=== PATIENT | male | born 1945 | race Caucasian/White ===

== ENCOUNTER 2020-03-12 04:48 | Observation (INO) | payer MEDICARE ==
--- NOTE | 2020-03-12 02:41 | EDM.PDOC ---
ED HPI GENERAL MEDICAL PROBLEM - General Chief Complaint: Cardiovascular Problem Stated Complaint: Chest pressure, vomiting and diarrhea Time Seen by Provider: 03/12/20 02:20 Source of Information: Reports: EMS History Limitations: Reports: No Limitations - History of Present Illness INITIAL COMMENTS - FREE TEXT/NARRATIVE: Pt states he was well all day. Went to bed around 2300hrs woke up midnight with severe (wretching vomiting and diarrhea back back 3 x within 30 minutes with resultant encopresis) Vomiting was intense and may be reason for his chest pain/pressure without dyspnea and diaphoresis. Does have h/o CAD with sting placement x2 2005 and CABG in 2006. Other than HTN and cardiac, with possible untreated A-fib mentioned one time. does cardiac rehab still 3 x week. Pt was [place] tonight when sx started and called EMS but did not bring any of his medications with him and does not know the names of his medications. (will try to track down via internet look up) Onset: Sudden Onset Date: 03/12/20 Onset Time: 23:50 Location: Reports: Chest, Abdomen Quality: Reports: Pressure Severity: Moderate Improves with: Reports: Rest Worsens with: Reports: Other (vomiting) Associated Symptoms: Reports: Chest Pain, Nausea/Vomiting - Related Data Allergies Allergy/AdvReac Type Severity Reaction Status Date / Time No Known Allergies Allergy Verified 03/12/20 02:44 Home Meds: Home Meds Citalopram [Citalopram HBr] 20 mg PO DAILY 03/12/20 [History] Ezetimibe 10 mg PO DAILY 03/12/20 [History] Losartan Potassium 100 mg PO DAILY 03/12/20 [History] Simvastatin 40 mg PO DAILY 03/12/20 [History] Tamsulosin HCl 0.4 mg PO DAILY 03/12/20 [History] amLODIPine Besylate [Norvasc] 10 mg PO DAILY 03/12/20 [History] hydroCHLOROthiazide [Hydrochlorothiazide] 25 mg PO DAILY 03/12/20 [History] ED ROS GENERAL - Review of Systems Review Of Systems: See Below Constitutional: Denies: Fever HEENT: Reports: No Symptoms Respiratory: Reports: No Symptoms Cardiovascular: Reports: Chest Pain GI/Abdominal: Reports: Diarrhea, Nausea, Vomiting : Reports: No Symptoms Musculoskeletal: Reports: No Symptoms Skin: Reports: No Symptoms. Denies: Diaphoresis, Change in Color Neurological: Reports: No Symptoms Psychiatric: Reports: No Symptoms ED EXAM, GENERAL - Physical Exam Exam: See Below Exam Limited By: No Limitations General Appearance: Alert, WD/WN, Anxious, Mild Distress Ears: Normal External Exam Nose: Normal Inspection Throat/Mouth: Normal Inspection, Normal Lips, Normal Teeth, Normal Oropharynx Head: Atraumatic Neck: Normal Inspection, Supple, Non-Tender Respiratory/Chest: No Respiratory Distress, Lungs Clear, Normal Breath Sounds Cardiovascular: Extra Beats, Irregularly Irregular GI/Abdominal: Normal Bowel Sounds, Soft, Non-Tender Back Exam: Normal Inspection Extremities: Normal Inspection, Normal Range of Motion, Non-Tender Neurological: Alert, Oriented, CN II-XII Intact, Normal Cognition, Normal Gait Psychiatric: Normal Affect, Normal Mood Skin Exam: Warm, Dry, Intact, Normal Color EKG INTERPRETATION EKG Date: 03/12/20 Time: 03:31 Rhythm: A-Fib P-Wave: Absent QRS: Normal QT: Prolonged Comparison: NA - No Prior EKG Course - Vital Signs Last Recorded V/S: Last Vital Signs Temp 98.8 F 03/12/20 03:36 Pulse 74 03/12/20 03:35 Resp 18 03/12/20 03:35 BP 164/85 H 03/12/20 03:35 Pulse Ox 97 03/12/20 03:35 - Orders/Labs/Meds Orders: Active Orders 24 hr Category Date Time Status Cardiac Monitoring [RC] .As Directed Care 03/12/20 02:48 Active EKG Documentation Completion [RC] ASDIRECTED Care 03/12/20 02:58 Active Chest 1V Frontal [CR] Stat Exams 03/12/20 02:58 Taken Sodium Chloride 0.9% [Normal Saline] 1,000 ml Med 03/12/20 02:45 Active IV ASDIRECTED ED Antiemetic Medication Reflex [OM.PC] Stat Oth 03/12/20 02:58 Ordered Medication Orders Sodium Chloride (Normal Saline) 1,000 mls @ 125 mls/hr IV ASDIRECTED [facility] Last Admin: 03/12/20 03:09 Dose: 125 mls/hr Documented by: CORTES Labs: Laboratory Tests 03/12/20 03/12/20 03/12/20 Range/Units 02:50 02:50 02:50 WBC 14.2 H (4.0-11.0) K/uL RBC 4.79 (4.50-6.50) M/uL Hgb 15.0 (13.0-18.0) g/dL Hct 43.0 (40.0-54.0) % MCV 90 (76-96) fL MCH 31.3 (27.0-32.0) pg MCHC 34.9 (31.0-35.0) g/dL RDW 13.1 (11.0-16.0) % Plt Count 235 (150-400) K/uL MPV 11.2 H (6.0-10.0) fL Neut % (Auto) 89.5 H (45.0-70.0) % Lymph % (Auto) 4.3 L (20.0-40.0) % [place] % (Auto) 5.3 (3.0-10.0) % Eos % (Auto) 0.8 L (1.0-5.0) % Baso % (Auto) 0.1 (0.0-0.5) % Neut # (Auto) 12.67 H (2.00-7.50) K/uL Lymph # (Auto) 0.61 L (1.50-4.00) K/uL [place] # (Auto) 0.75 (0.20-0.80) K/uL Eos # (Auto) 0.12 (0.04-0.40) K/uL Baso # (Auto) 0.02 (0.02-0.10) K/uL PT (9.0-11.5) sec INR (1.0-3.5) APTT (24.4-33.2) SECONDS Sodium 142 (136-145) mmol/L Potassium 4.1 (3.5-5.1) mmol/L Chloride 104 (98-107) mmol/L Carbon Dioxide 31.1 (21.0-32.0) mmol/L Anion Gap 11.0 (5.0-15.0) mmol/L BUN 19 (8-26) mg/dL Creatinine 1.17 (0.70-1.30) mg/dL Est Cr Clr Drug Dosing 58.06 mL/min Estimated GFR (MDRD) > 60 (>60) MLS/MIN BUN/Creatinine Ratio 16.2 (6-25) Glucose 140 H (74-100) mg/dL Calcium 9.1 (8.5-10.1) mg/dL Total Bilirubin 0.7 (0.0-1.0) mg/dL AST 36 (15-37) U/L ALT 49 (12-78) U/L Alkaline Phosphatase 100 (46-116) U/L Troponin I 0.041 (0.000-0.060) ng/mL Total Protein 7.4 (6.4-8.2) g/dL Albumin 3.9 (3.4-5.0) g/dL Globulin 3.5 (2.2-4.2) g/dL Albumin/Globulin Ratio 1.1 (0.8-2.0) 03/12/20 Range/Units 02:50 WBC (4.0-11.0) K/uL RBC (4.50-6.50) M/uL Hgb (13.0-18.0) g/dL Hct (40.0-54.0) % MCV (76-96) fL MCH (27.0-32.0) pg MCHC (31.0-35.0) g/dL RDW (11.0-16.0) % Plt Count (150-400) K/uL MPV (6.0-10.0) fL Neut % (Auto) (45.0-70.0) % Lymph % (Auto) (20.0-40.0) % [place] % (Auto) (3.0-10.0) % Eos % (Auto) (1.0-5.0) % Baso % (Auto) (0.0-0.5) % Neut # (Auto) (2.00-7.50) K/uL Lymph # (Auto) (1.50-4.00) K/uL [place] # (Auto) (0.20-0.80) K/uL Eos # (Auto) (0.04-0.40) K/uL Baso # (Auto) (0.02-0.10) K/uL PT 10.4 (9.0-11.5) sec INR 1.0 (1.0-3.5) APTT 21.7 L (24.4-33.2) SECONDS Sodium (136-145) mmol/L Potassium (3.5-5.1) mmol/L Chloride (98-107) mmol/L Carbon Dioxide (21.0-32.0) mmol/L Anion Gap (5.0-15.0) mmol/L BUN (8-26) mg/dL Creatinine (0.70-1.30) mg/dL Est Cr Clr Drug Dosing mL/min Estimated GFR (MDRD) (>60) MLS/MIN BUN/Creatinine Ratio (6-25) Glucose (74-100) mg/dL Calcium (8.5-10.1) mg/dL Total Bilirubin (0.0-1.0) mg/dL AST (15-37) U/L ALT (12-78) U/L Alkaline Phosphatase (46-116) U/L Troponin I (0.000-0.060) ng/mL Total Protein (6.4-8.2) g/dL Albumin (3.4-5.0) g/dL Globulin (2.2-4.2) g/dL Albumin/Globulin Ratio (0.8-2.0) Meds: Medications Generic Name Dose Route Start Last Admin Trade Name Freq PRN Reason Stop Dose Admin Sodium Chloride 1,000 mls @ 125 mls/hr 03/12/20 02:45 03/12/20 03:09 Normal Saline IV 125 mls/hr ASDIRECTED [facility] Administration - Re-Assessments/Exams Free Text/Narrative Re-Assessment/Exam: 03/12/20 03:03 Pt remained chest pain free as well as no further vomiting or diarrhea Free Text/Narrative Re-Assessment/Exam: 03/12/20 03:[address] Evans ([place], [place]) advised to have repeat Troponin at 0700 and call back for transfer, no bed available until after 0700. Pt is asymptomatic for chest pain and has had no further vomiting or diarrhea. Departure - Departure Time of Disposition: 03:52 Disposition: Refer to Observation Condition: Fair Clinical Impression: Palpitations, Chest pain, Atrial fibrillation with controlled ventricular rate, Vomiting and diarrhea Instructions: Atrial Fibrillation Sepsis Event Note (ED) - Focused Exam Vital Signs: Vital Signs Temp Pulse Resp BP Pulse Ox 03/12/20 03:36 98.8 F 03/12/20 03:35 74 18 164/85 H 97 03/12/20 02:18 75 18 144/66 H 99 - My Orders Last 24 Hours: My Active Orders 03/12/20 02:45 Sodium Chloride 0.9% [Normal Saline] 1,000 ml IV ASDIRECTED 03/12/20 02:48 Cardiac Monitoring [RC] .As Directed 03/12/20 02:58 EKG Documentation Completion [RC] ASDIRECTED Chest 1V Frontal [CR] Stat ED Antiemetic Medication Reflex [OM.PC] Stat - Assessment/Plan Last 24 Hours: My Active Orders 03/12/20 02:45 Sodium Chloride 0.9% [Normal Saline] 1,000 ml IV ASDIRECTED 03/12/20 02:48 Cardiac Monitoring [RC] .As Directed 03/12/20 02:58 EKG Documentation Completion [RC] ASDIRECTED Chest 1V Frontal [CR] Stat ED Antiemetic Medication Reflex [OM.PC] Stat
[~2020-03-12 04:48] MED LIST: Sodium Chloride 0.9% 1,000 ML IV SCH
--- NOTE | 2020-03-12 09:37 | PCM.PN ---
- General Info Date of Service: 03/12/20 Admission Dx/Problem (Free Text): chest pain, vomiting and diarrhea reason for visit. Functional Status: Reports: Pain Controlled - Review of Systems General: Denies: Fever, Weakness, Malaise HEENT: Reports: No Symptoms Pulmonary: Reports: No Symptoms Cardiovascular: Denies: Chest Pain, Dyspnea on Exertion Gastrointestinal: Reports: No Symptoms. Denies: Abdominal Pain, Diarrhea, Nausea, Vomiting Genitourinary: Reports: No Symptoms Musculoskeletal: Reports: No Symptoms Skin: Reports: No Symptoms Neurological: Reports: No Symptoms Psychiatric: Reports: No Symptoms - Patient Data Vitals - Most Recent: Last Vital Signs Temp 98.8 F 03/12/20 03:36 Pulse 77 03/12/20 06:04 Resp 18 03/12/20 06:04 BP 117/73 03/12/20 06:04 Pulse Ox 94 L 03/12/20 06:04 Weight - Most Recent: 230 lb 4.8 oz I&O - Last 24 Hours: Intake & Output 03/11/20 03/12/20 03/12/20 22:59 06:59 14:59 Intake Total 0 Output Total 0 Balance 0 Lab Results Last 24 Hours: Laboratory Results - last 24 hr 03/12/20 03/12/20 03/12/20 Range/Units 02:50 02:50 02:50 WBC 14.2 H (4.0-11.0) K/uL RBC 4.79 (4.50-6.50) M/uL Hgb 15.0 (13.0-18.0) g/dL Hct 43.0 (40.0-54.0) % MCV 90 (76-96) fL MCH 31.3 (27.0-32.0) pg MCHC 34.9 (31.0-35.0) g/dL RDW 13.1 (11.0-16.0) % Plt Count 235 (150-400) K/uL MPV 11.2 H (6.0-10.0) fL Neut % (Auto) 89.5 H (45.0-70.0) % Lymph % (Auto) 4.3 L (20.0-40.0) % [place] % (Auto) 5.3 (3.0-10.0) % Eos % (Auto) 0.8 L (1.0-5.0) % Baso % (Auto) 0.1 (0.0-0.5) % Neut # (Auto) 12.67 H (2.00-7.50) K/uL Lymph # (Auto) 0.61 L (1.50-4.00) K/uL [place] # (Auto) 0.75 (0.20-0.80) K/uL Eos # (Auto) 0.12 (0.04-0.40) K/uL Baso # (Auto) 0.02 (0.02-0.10) K/uL PT (9.0-11.5) sec INR (1.0-3.5) APTT (24.4-33.2) SECONDS Sodium 142 (136-145) mmol/L Potassium 4.1 (3.5-5.1) mmol/L Chloride 104 (98-107) mmol/L Carbon Dioxide 31.1 (21.0-32.0) mmol/L Anion Gap 11.0 (5.0-15.0) mmol/L BUN 19 (8-26) mg/dL Creatinine 1.17 (0.70-1.30) mg/dL Est Cr Clr Drug Dosing 58.06 mL/min Estimated GFR (MDRD) > 60 (>60) MLS/MIN BUN/Creatinine Ratio 16.2 (6-25) Glucose 140 H (74-100) mg/dL Calcium 9.1 (8.5-10.1) mg/dL Total Bilirubin 0.7 (0.0-1.0) mg/dL AST 36 (15-37) U/L ALT 49 (12-78) U/L Alkaline Phosphatase 100 (46-116) U/L Troponin I 0.041 (0.000-0.060) ng/mL Total Protein 7.4 (6.4-8.2) g/dL Albumin 3.9 (3.4-5.0) g/dL Globulin 3.5 (2.2-4.2) g/dL Albumin/Globulin Ratio 1.1 (0.8-2.0) 03/12/20 03/12/20 Range/Units 02:50 08:10 WBC (4.0-11.0) K/uL RBC (4.50-6.50) M/uL Hgb (13.0-18.0) g/dL Hct (40.0-54.0) % MCV (76-96) fL MCH (27.0-32.0) pg MCHC (31.0-35.0) g/dL RDW (11.0-16.0) % Plt Count (150-400) K/uL MPV (6.0-10.0) fL Neut % (Auto) (45.0-70.0) % Lymph % (Auto) (20.0-40.0) % [place] % (Auto) (3.0-10.0) % Eos % (Auto) (1.0-5.0) % Baso % (Auto) (0.0-0.5) % Neut # (Auto) (2.00-7.50) K/uL Lymph # (Auto) (1.50-4.00) K/uL [place] # (Auto) (0.20-0.80) K/uL Eos # (Auto) (0.04-0.40) K/uL Baso # (Auto) (0.02-0.10) K/uL PT 10.4 (9.0-11.5) sec INR 1.0 (1.0-3.5) APTT 21.7 L (24.4-33.2) SECONDS Sodium (136-145) mmol/L Potassium (3.5-5.1) mmol/L Chloride (98-107) mmol/L Carbon Dioxide (21.0-32.0) mmol/L Anion Gap (5.0-15.0) mmol/L BUN (8-26) mg/dL Creatinine (0.70-1.30) mg/dL Est Cr Clr Drug Dosing mL/min Estimated GFR (MDRD) (>60) MLS/MIN BUN/Creatinine Ratio (6-25) Glucose (74-100) mg/dL Calcium (8.5-10.1) mg/dL Total Bilirubin (0.0-1.0) mg/dL AST (15-37) U/L ALT (12-78) U/L Alkaline Phosphatase (46-116) U/L Troponin I 0.985 H* D (0.000-0.060) ng/mL Total Protein (6.4-8.2) g/dL Albumin (3.4-5.0) g/dL Globulin (2.2-4.2) g/dL Albumin/Globulin Ratio (0.8-2.0) Med Orders - Current: Current Medications Sodium Chloride (Normal Saline) 1,000 mls @ 125 mls/hr IV ASDIRECTED [facility] Last Admin: 03/12/20 03:09 Dose: 125 mls/hr Documented by: - Exam Quality Assessment: No: Supplemental Oxygen General: Alert, Oriented, Cooperative, No Acute Distress HEENT: Pupils Equal, Pupils Reactive Neck: Supple, Trachea Midline, No JVD, No Thyromegaly Lungs: Clear to Auscultation, Normal Respiratory Effort. No: Decreased Breath Sounds, Crackles, Rales, Rhonchi Cardiovascular: Regular Rate GI/Abdominal Exam: Normal Bowel Sounds, Soft Back Exam: Normal Inspection, Full Range of Motion Extremities: Normal Inspection, Normal Range of Motion Skin: Warm, Dry, Intact Neurological: No New Focal Deficit, Normal Gait, Normal Speech Psy/Mental Status: Alert, Normal Affect, Normal Mood Sepsis Event Note - Evaluation Sepsis Screening Result: No Definite Risk - Focused Exam Vital Signs: Vital Signs Temp Pulse Resp BP Pulse Ox 03/12/20 06:04 77 18 117/73 94 L 03/12/20 03:36 98.8 F 03/12/20 03:35 74 18 164/85 H 97 03/12/20 02:18 75 18 144/66 H 99 - Problem List Review Problem List Initiated/Reviewed/Updated: Yes - My Orders Last 24 Hours: My Active Orders 03/12/20 02:45 Sodium Chloride 0.9% [Normal Saline] 1,000 ml IV ASDIRECTED 03/12/20 02:48 Cardiac Monitoring [RC] .As Directed 03/12/20 02:58 EKG Documentation Completion [RC] ASDIRECTED Chest 1V Frontal [CR] Stat ED Antiemetic Medication Reflex [OM.PC] Stat 03/12/20 04:00 Admission Status [Patient Status] [ADT] Routine 03/12/20 04:03 Code Status [Resuscitation Status] Stat 03/12/20 06:04 CULTURE MRSA SURVEY [RM] Routine 03/12/20 07:41 EKG Documentation Completion [RC] ASDIRECTED EKG 12 Lead [EK] Urgent - Assessment Assessment:: Elevated Troponin Vomiting and Diarrhea resolved Spoke with Charles (hospitalist at [place]) who advised pt be transferred to their facility, he expects beds to opened by time he arrives in hospital otherwise he will be sent to ER awaiting a bed. - Plan Plan:: Pt is being transferred to [place], ER due to elevated Troponin.
[2020-03-12] MEDS ORDERED: Heparin Sodium/D5W 25,000 UNITS/500 ML BAG IV SCH ×2 (09:45→10:20)
[2020-03-12] MEDS ORDERED: Aspirin 81 MG Tab.Chew PO ONE (09:45)
--- NOTE | 2020-03-12 14:12 | CR ---
DATE OF SERVICE: 03/12/2020 CLINICAL DATA: Chest Pain. AP CHEST: No priors. The patient is status post median sternotomy. The heart is enlarged. The patient has taken a poor inspiration. The pulmonary vasculature does appear mildly prominent with slight cephalization of flow suggesting the possibility of pulmonary venous congestion or fluid overload. It may be accentuated by the poor inspiration. There are patchy densities in the left lung base suggesting the possibility of pneumonia/pneumonitis. No pneumothorax. No pleural effusions. [id number] [facility]
== END 2020-03-12 11:26 | disposition critical access hospital (66) ==
LOC: LB.ED 04:48 → LB.MS 05:41 → UNDOADMOB 05:53 → LB.MS 05:53
PROVIDERS: ADMIT Physician Assistant Surgical; ATTEND Physician Assistant Surgical
DX: I48.91 Unspecified atrial fibrillation (principal); R79.89 Other specified abnormal findings of blood chemistry; R11.2 Nausea with vomiting, unspecified; R19.7 Diarrhea, unspecified; I10 Essential (primary) hypertension; I25.10 Atherosclerotic heart disease of native coronary artery without angina pectoris; Z95.5 Presence of coronary angioplasty implant and graft; Z79.899 Other long term (current) drug therapy; Z20.828 Contact with and (suspected) exposure to other viral communicable diseases
CPT/HCPCS: 36415; 71045; 80053; 84484; 85025; 85610; 85730; 93005; 99285; A9270; J1644; J7030; U0002; 96361; 96365; G0378